=== PATIENT | male | born 1970 | race Caucasian/White ===

== ENCOUNTER 2023-03-26 15:21 | Outpatient (CLI) | payer BC | END 2023-03-26 15:22 | disposition home or self-care (01) | LOC: BICMAMMO 15:21 | PROVIDERS: ATTEND Internal Medicine | DX: M81.0 Age-related osteoporosis without current pathological fracture (principal); M85.851 Other specified disorders of bone density and structure, right thigh; M85.852 Other specified disorders of bone density and structure, left thigh; Z87.310 Personal history of (healed) osteoporosis fracture | CPT/HCPCS: 77080 ==